=== PATIENT | male | born 1970 | race Caucasian/White ===

== ENCOUNTER 2024-06-01 21:51 | Emergency (ER) | payer OTHER ==
[~2024-06-01] VITALS: Ht 167.6 cm; Wt 70.3 kg
[~2024-06-01 21:51] MED LIST: ANAPROX DS550 MG PO; CLEOCIN HCL150 MG PO; IBU-8800 MG PO; MOTRIN800 MG PO; TRAMADOL HCL50 MG PO; VICODIN 5/500 505 MG PO
[2024-06-01] MEDS ORDERED: Acetaminophen/Hydrocodone 5 MG/325 MG TABLET PO ONE ×2 (22:25→22:35)
[2024-06-01] MEDS ORDERED: Ondansetron Hydrochloride 4 MG TAB SL ONE (22:25)
[2024-06-01] MEDS ORDERED: Sulfamethoxazole/Trimethopri 1 TAB TAB PO ONE (22:25)
[2024-06-02] MEDS ORDERED: SEPTDS PO (00:32)
== END 2024-06-02 00:44 | disposition home or self-care (01) ==
LOC: ED 21:51
DX: L02.213 Cutaneous abscess of chest wall (principal); Z88.4 Allergy status to anesthetic agent; Z88.0 Allergy status to penicillin; Z90.49 Acquired absence of other specified parts of digestive tract

== ENCOUNTER 2024-06-05 21:29 | Inpatient (IN) | payer OTHER ==
[~2024-06-05] VITALS: Ht 172.7 cm; Wt 68.0 kg
[~2024-06-05 21:29] MED LIST changes: +SEPTDS PO
[2024-06-05 21:41] VITALS: BP 128/89
[2024-06-05] MEDS ORDERED: Vancomycin Hydrochloride 250 ML IV ONE (21:55)
[2024-06-05 22:18] LABS: BASO # 0.1 10*3/uL (0.0-0.1); BASO % 0.9 % (0.0-1.0); EOS # 0.4 10*3/uL (0.0-0.4); EOS % 5.9 % (1.0-4.0); HEMATOCRIT 40.2 % (42.0-52.0); LYMPH # 2.3 10*3/uL (1.3-4.4); LYMPH % 35.2 % (27.0-41.0); MEAN CELL VOLUME 94.4 fl (80.0-94.0); MEAN CORPUSCULAR HGB 33.6 pg (27.0-31.0); MEAN CORPUSCULAR HGB CONC 35.6 g/dl (33.0-37.0); MEAN PLATELET VOLUME 8.5 fl (9.6-12.3); MONO # 0.4 10*3/uL (0.1-1.0); MONO % 6.6 % (3.0-9.0); NEUT # 3.3 10*3/uL (2.3-7.9); NEUT % 51.1 % (47.0-73.0); PLATELET COUNT AUTOMATED 299 10*3/uL (130-400); RED BLOOD COUNT 4.26 10*6/uL (4.50-5.90); RED CELL DISTRI WIDTH 12.2 % (0-14.5); WHITE BLOOD COUNT 6.5 10*3/uL (4.8-10.8)
[2024-06-05 22:37] LABS: BUN 14 mg/dl (9-23); CHLORIDE 103 mmol/L (98-107); POTASSIUM 3.7 mmol/L (3.4-5.1)
[2024-06-05] MEDS ORDERED: MORPHINE Sulfate 2 MG/ML SYR IV PRN (23:30)
[2024-06-05] MEDS ORDERED: Ondansetron Hydrochloride 4 MG/2 ML VIAL IV PRN (23:30)
[2024-06-05] MEDS ORDERED: ACETAMINOPHEN 325 MG TAB PO PRN (23:30)
[2024-06-06] MEDS ORDERED: TEMAZEPAM 15 MG CAP PO ONE (00:55)
[2024-06-06 01:32] VITALS: BP 124/79
[2024-06-06 05:30] VITALS: BP 121/67
[2024-06-06 06:50] LABS: BASO # 0.1 10*3/uL (0.0-0.1); BASO % 0.8 % (0.0-1.0); EOS # 0.4 10*3/uL (0.0-0.4); EOS % 6.5 % (1.0-4.0); LYMPH # 2.3 10*3/uL (1.3-4.4); LYMPH % 34.2 % (27.0-41.0); MEAN CELL VOLUME 96.6 fl (80.0-94.0); MEAN CORPUSCULAR HGB 33.1 pg (27.0-31.0); MEAN CORPUSCULAR HGB CONC 34.3 g/dl (33.0-37.0); MEAN PLATELET VOLUME 8.6 fl (9.6-12.3); MONO # 0.5 10*3/uL (0.1-1.0); MONO % 6.8 % (3.0-9.0); NEUT # 3.4 10*3/uL (2.3-7.9); NEUT % 51.4 % (47.0-73.0); PLATELET COUNT AUTOMATED 278 10*3/uL (130-400); RED BLOOD COUNT 4.35 10*6/uL (4.50-5.90); RED CELL DISTRI WIDTH 12.1 % (0-14.5); WHITE BLOOD COUNT 6.6 10*3/uL (4.8-10.8)
[2024-06-06 07:32] LABS: BUN 13 mg/dl (9-23); CHLORIDE 107 mmol/L (98-107); CHOLESTEROL 187 mg/dL (<200); FREE T4 1.34 ng/dl (0.89-1.76); LDL CHOLESTEROL 124 mg/dL (9-159); POTASSIUM 4.2 mmol/L (3.4-5.1); TRIGLYCERIDES 93 mg/dl (<150)
[2024-06-06] MEDS ORDERED: Vancomycin Hydrochloride 1,000 MG in SODIUM CHLORIDE 0.9% 250 ML IV SCH (10:00)
== END 2024-06-06 06:31 | disposition left against medical advice (07) | DRG 383 ==
LOC: ED 21:29 → EDHOLD 22:59
PROVIDERS: Internal Medicine; ADMIT Internal Medicine; ATTEND Internal Medicine
DX: L02.213 Cutaneous abscess of chest wall (principal); E78.5 Hyperlipidemia, unspecified; B95.62 Methicillin resistant Staphylococcus aureus infection as the cause of diseases classified elsewhere; R73.9 Hyperglycemia, unspecified; D75.89 Other specified diseases of blood and blood-forming organs; F17.210 Nicotine dependence, cigarettes, uncomplicated; Z53.29 Procedure and treatment not carried out because of patient's decision for other reasons; Z88.0 Allergy status to penicillin; Z88.8 Allergy status to other drugs, medicaments and biological substances; Z82.49 Family history of ischemic heart disease and other diseases of the circulatory system; Z80.0 Family history of malignant neoplasm of digestive organs; Z78.9 Other specified health status; Z79.899 Other long term (current) drug therapy; Z79.01 Long term (current) use of anticoagulants

== ENCOUNTER 2024-06-06 06:55 | Emergency (ER) | payer OTHER ==
[~2024-06-06] VITALS: Ht 167.6 cm; Wt 68.0 kg
[2024-06-06] MEDS ORDERED: Lidocaine Hydrochloride 5 ML AMP SC ONE (07:55)
[2024-06-06] MEDS ORDERED: IBUPROFEN 400 MG TAB PO ONE (09:00)
[2024-06-06] MEDS ORDERED: ACETAMINOPHEN 325 MG TAB PO ONE (09:00)
== END 2024-06-06 09:21 | disposition home or self-care (01) ==
LOC: ED 06:55
DX: L02.213 Cutaneous abscess of chest wall (principal); E78.5 Hyperlipidemia, unspecified; R73.9 Hyperglycemia, unspecified; B95.62 Methicillin resistant Staphylococcus aureus infection as the cause of diseases classified elsewhere; F12.90 Cannabis use, unspecified, uncomplicated; F17.210 Nicotine dependence, cigarettes, uncomplicated; Z88.0 Allergy status to penicillin; Z88.8 Allergy status to other drugs, medicaments and biological substances; Z90.49 Acquired absence of other specified parts of digestive tract